=== PATIENT | male | born 1960 | race African-American/Black ===

== ENCOUNTER 2018-11-06 22:07 | Emergency (ER) | payer BC, OTHER ==
[2018-11-06 22:37] VITALS: BP 129/75; PULSE 100; TEMP 98.8; BMI 28.7
--- NOTE | 2018-11-07 01:14 | PDOC ---
History of Present Illness - General Chief Complaint: Pain Stated Complaint: PAIN IN THE GROIN Time Seen by Provider: 11/07/18 00:29 - History of Present Illness Initial Comments: Gómez Tadeo is a 58yo man with no known history who presents with right testicular swelling since this morning. He reports that he has had a "1/10 soreness" for 5-6 days, starting around the 4th. He also reports that on Monday and Monday (11/02 - 11/03) morning, he accidentally started urinating before he intended to, which has never happened to him before. He denies any previous urinary incontinence. He did not notice any swelling until he got up today, at which point he noted marked swelling on the right side. He denies any increased pain, warmth, or redness. He has not had any dysuria, hematuria, penile lesions or discharge, new sexual contacts, or constipation. He has not noticed that the scrotum becomes larger when standing or when bearing down. He has never had anything similar happen in the past. Past History - Past Medical History Allergies/Adverse Reactions: Allergies Allergy/AdvReac Type Severity Reaction Status Date / Time No Known Allergies Allergy Verified 11/06/18 22:32 Home Medications: Ambulatory Orders No Home Medications 0 dose .ROUTE UTDICT 11/02/12 - Suicide/Smoking/Psychosocial Hx Smoking Status: No Smoking History: Former smoker Have you smoked in the past 12 months: No Number of Cigarettes Smoked Daily: 0 If you are a former smoker, when did you quit?: 20yrs Information on smoking cessation initiated: No Hx Alcohol Use: No Drug/Substance Use Hx: No Substance Use Type: None Review of Systems - Review of Systems Comments:: General: No fevers, no chills, no weight or appetite change, no malaise HEENT: No changes in vision, no changes in hearing, no congestion, no sore throat CV: No chest pain, no palpitations, no LE edema Pulm: No SOB, no cough, no wheezing GI: No nausea or vomiting, no change in bowel habits, no melena : No frequency, no urgency, no dysuria. See HPI Musc: No back pain, no joint swelling, no recent injury Skin: No rash, no lesions, no erythema Endo: No excessive thirst, no heat/cold intolerance Heme: No unusual bruising or bleeding, no swollen glands Neuro: No syncope, no numbness/tingling, no focal weakness Vasc: No claudication Psych: No recent change in mood, no SI or HI *Physical Exam - Vital Signs Last Vital Signs Temp Pulse Resp BP Pulse Ox 98.8 F 100 H 18 129/75 100 11/06/18 22:33 11/06/18 22:33 11/06/18 22:33 11/06/18 22:33 11/06/18 22:33 - Physical Exam Comments: General: Comfortable, no acute distress HEENT: PERRL, EOMI, MMM, voice normal Cards: RRR, no murmur appreciated Pulm: Comfortable on room air, clear to auscultation bilaterally Abd: Soft, nontender, nondistended : Markedly enlarged right testicle vs contents of right scrotum; cannot palpate distinct area of swelling. Nontender, no erythema, no lesions. No palpable hernia. Left testicle w/o abnormality. Ext: Atraumatic. No LE edema. ROM intact Skin: Normal color, no rashes or lesions Neuro: A&Ox3, CN grossly intact, normal speech, motor/sensory grossly intact and symmetric Psych: Mood appropriate to situation ED Treatment Course - RADIOLOGY Radiology Studies Ordered: Category Date Time Status SCROTUM AND CONTENTS US [US] Stat Ultrasound 11/07/18 00:52 Ordered Medical Decision Making - Medical Decision Making 11/07/18 00:58 Gómez Tadeo is a 58yo man with no known history who presents with painless right testicular swelling since this morning. He denies any associated symptoms including dysuria, hematuria, constipation, penile discharge, or other associated symptoms. - Markedly enlarged contents of right scrotum. Nontender, no distinct area of swelling - Testicular US ordered for evaluation 11/07/18 02:13 - US completed. Shows large right hydrocele. Otherwise normal ultrasound - Updated Mr Tadeo w/ the results. Discussed home care, will give urology contact info for follow up. He states understanding and agreement with this plan and feels comfortable going home. Seen with Dr Moreira. Sheri Mtez PGY2 *DC/Admit/Observation/Transfer Diagnosis at time of Disposition: Right hydrocele - Discharge Dispostion Disposition: HOME Condition at time of disposition: Stable Decision to Admit order: No - Referrals Referrals: Jeff Chapman MD [Staff Physician] - - Patient Instructions Printed Discharge Instructions: DI for Hydrocele-Adult Additional Instructions: Discharge Instructions: You were seen in the ED for right testicular swelling. You had an ultrasound showing a hydrocele, which is a fluid collection. This may resolve on its own, but you will need to follow up with a urologist. Home Care and Follow Up: - You may use acetaminophen (Tylenol) or ibuprofen (Advil, Motrin) for pain or discomfort. Follow the directions on the bottle. - Use a scrotal support device or supportive underwear until the fluid collection resolves - You have been given contact information for Dr Chapman, a urologist. Call tomorrow to schedule a follow up appointment within the next 2-3 days. - Seek immediate care if your symptoms worsen, you develop severe pain, you are unable to urinate, the testicle becomes warm or red, or you have any other medical emergency. - Post Discharge Activity Forms/Work/School Notes: Back to Work
--- NOTE | 2018-11-07 02:00 | PDOC ---
Attending Attestation - Resident Resident Name: Sheri Metz - ED Attending Attestation I have performed the following: I have examined & evaluated the patient, The case was reviewed & discussed with the resident, I agree w/resident's findings & plan, Exceptions are as noted - HPI HPI: 11/07/18 02:00 58 yo male had noted rt testicular enlargement, Mirza any recent trauma or prior surgeries to the area - Physicial Exam PE: 11/07/18 02:[address] Metz 's physical exam, enraged rt testicle, no erythema,no hard masses - Medical Decision Making 11/07/18 02:01 testicular ultrasound shows good blood flow bilaterally to testes, large rt hydrocele pt referred to urology
== END 2018-11-07 02:25 | disposition home or self-care (01) ==
LOC: JER 22:07
DX: N43.3 Hydrocele, unspecified (principal)
CPT/HCPCS: 76870-TC; 99281-25